=== PATIENT | male | born 1960 | race Hispanic/Latino ===

== ENCOUNTER → 2023-12-26 | Day surgery (SDC) | payer BC ==
[~2023-12-26] MED LIST: FAMOTIDINE20 MG PO; GABAPENTIN300 MG PO; GLIPIZIDE ER5 MG PO; JARDIANCE10 MG PO; LIDOCAINE HCL 2% LOCAL INJ 5 ML SDV VIAL INJ ONE; LIPITOR10 MG PO; METFORMIN HCL500 MG PO; MIDAZOLAM HCL 2 MG/2 ML VIAL ONE; PANTOPRAZOLE SO40 MG PO; PROPOFOL IV EMULSION 10 MG/ML 20 ML VIAL ONE
[2023-12-26] MEDS: LACTATED RINGER'S 1,000 ML ONE (07:42)
[2023-12-26 09:30] VITALS: BP 117/55; PULSE 70; RESP 16; O2SAT 99
== END | disposition home or self-care (01) ==
LOC: OR 06:23
PROVIDERS: ATTEND Internal Medicine Gastroenterology
DX: Z12.11 Encounter for screening for malignant neoplasm of colon (principal); K59.00 Constipation, unspecified; K21.9 Gastro-esophageal reflux disease without esophagitis; R74.8 Abnormal levels of other serum enzymes; E11.9 Type 2 diabetes mellitus without complications; E78.5 Hyperlipidemia, unspecified; Z01.810 Encounter for preprocedural cardiovascular examination; Z79.84 Long term (current) use of oral hypoglycemic drugs; Z79.899 Other long term (current) drug therapy; Z68.30 Body mass index [BMI] 30.0-30.9, adult
CPT/HCPCS: 36415; 45378; 82948; 93005; J2001; J2250; J2704; J7121

== ENCOUNTER → 2024-01-31 | Day surgery (SDC) | payer BC ==
[~2024-01-31] MED LIST changes: +CELEBREX50 MG; +GLIPIZIDE5 MG PO; +LIPITOR20 MG PO; +METFORMIN HCL850 MG PO; +NEURONTIN300 MG PO
[2024-01-31] MEDS: LACTATED RINGER'S 1,000 ML ONE (14:03)
[2024-01-31 15:40] VITALS: BP 134/77; PULSE 78; RESP 16; TEMP 97.4; O2SAT 97
== END | disposition home or self-care (01) ==
LOC: OR 13:23 → MERGE 14:00
PROVIDERS: ATTEND Internal Medicine Gastroenterology
DX: K58.1 Irritable bowel syndrome with constipation (principal); D12.2 Benign neoplasm of ascending colon; K63.5 Polyp of colon; K64.8 Other hemorrhoids; K21.9 Gastro-esophageal reflux disease without esophagitis; E78.5 Hyperlipidemia, unspecified; E11.9 Type 2 diabetes mellitus without complications; Z79.84 Long term (current) use of oral hypoglycemic drugs; R74.8 Abnormal levels of other serum enzymes; Z79.899 Other long term (current) drug therapy; Z79.1 Long term (current) use of non-steroidal anti-inflammatories (NSAID)
CPT/HCPCS: 45384; 45385; J2001; J2250; J2704; J7121

== ENCOUNTER → 2024-12-15 | Outpatient (REF) | payer BC ==
[~2024-12-15] MED LIST changes: -LIDOCAINE HCL 2% LOCAL INJ 5 ML SDV VIAL INJ ONE; -MIDAZOLAM HCL 2 MG/2 ML VIAL ONE; -PROPOFOL IV EMULSION 10 MG/ML 20 ML VIAL ONE
== END ==
LOC: US 08:41
PROVIDERS: ATTEND Nurse Practitioner Family
DX: R74.8 Abnormal levels of other serum enzymes (principal)
CPT/HCPCS: 76705